=== PATIENT | female | born 1980 | race Caucasian/White ===

== ENCOUNTER → 2020-10-20 15:59 | Outpatient (BNVA) | payer OTHER, SELFPAY | PROVIDERS: PCP Nurse Practitioner Family; Visit Provider Registered Nurse | DX: R05 Cough (principal); J01.40 Acute pansinusitis, unspecified | CPT/HCPCS: 87635 ==

== ENCOUNTER → 2020-12-03 14:22 | Outpatient (BNVA) | payer BC, SELFPAY | PROVIDERS: PCP Nurse Practitioner Family; Visit Provider Nurse Practitioner Women's Health | DX: N92.6 Irregular menstruation, unspecified (principal); K58.9 Irritable bowel syndrome, unspecified; F32.89 Other specified depressive episodes; F41.9 Anxiety disorder, unspecified; G47.00 Insomnia, unspecified | CPT/HCPCS: 81025 ==

== ENCOUNTER → 2021-01-21 13:42 | Outpatient (BNVA) | payer BC, SELFPAY | PROVIDERS: PCP Nurse Practitioner Family; Visit Provider Obstetrics & Gynecology | DX: O09.899 Supervision of other high risk pregnancies, unspecified trimester (principal) | CPT/HCPCS: 80307; 82950; 84315; 85027; 86592; 86762; 86803; 86850; 86900; 87086; 87340; 87491; 87591; 87624; 87806 ==

== ENCOUNTER → 2021-01-30 15:33 | Outpatient (BNVA) | payer BC, SELFPAY | PROVIDERS: PCP Nurse Practitioner Family; Visit Provider Nurse Practitioner Women's Health | DX: O99.019 Anemia complicating pregnancy, unspecified trimester (principal); O09.899 Supervision of other high risk pregnancies, unspecified trimester | CPT/HCPCS: 82105; 82607; 82728; 82746; 83550; 84315 ==

== ENCOUNTER 2021-02-13 16:52 | Emergency (ER) | payer BC, SELFPAY ==
[2021-02-13 17:02] VITALS: BP 133/60; PULSE 87; RESP 18; TEMP 36.6; O2SAT 98; BMI 25.2
--- NOTE | 2021-02-13 17:04 | W.ED.PREGNAN ---
HPI - General: Chief complaint: Urogenital-Female Stated complaint: PELVIC PAIN 18 WKS PREG Time Seen by Provider: 02/13/21 17:03 History of Present Illness: HPI Narrative: Ms Leong is a 40 year old 5 para 3013 currently approximately 18 weeks with EDC of 07/14/2021 dated by an 11 week ultrasound who presents to the emergency department due to pelvic cramping. Symptom onset was approximately 3 days ago without specific provoking factor. Since that time her discomfort, which is moderate in intensity, and cramping in quality, has gotten more persistent. Mild associated nausea and vomiting today. No changes in bowel movements. No urinary symptoms. No associated vaginal bleeding or discharge. Mild associated lightheadedness yesterday. Does have a history of anemia. Has tried resting without significant leaf. No other significant change in health, signs of systemic illness, exacerbating or relieving factors. Review of Systems General: Reports: 10 or more systems reviewed and unremarkable except in HPI and below PFSH ED PFSH: Medical History Anxiety and depression Since at least the age of [age]--has been evaluated by [facility] and had gene testing to identify appropriate treatment. Managed by psychiatrist-- Dr. Tatum with [facility] in [place] Irritable bowel syndrome (IBS) Diagnosed in fifteen--was on Linzess in the past. Now diet controlled and has more constipation symptoms than anything. No pertinent past medical history Denies diabetes, asthma, hypertension, seizures, DVT/PE PCP: Mirta Lamb Surgical History Status post surgery Two thousand seven---history of bartholins cyst drainage with with general anesthesia. Performed At [facility] in [address]. Family History Grandfather Hypertension maternal Mother Thyroid disease Hyperlipidemia Family/Other Breast cancer maternal aunt, diagnosed at age 42 Grandmother Colon cancer maternal, diagnosed at age 53 Hyperlipidemia paternal Denies family history of Ovarian cancer Diabetes Heart disease Uterine cancer Stroke Physical Exam Narrative: EXAM NARRATIVE: GENERAL/CONSTITUTIONAL - mildly-appearing. Eyes - PERRL, no conjunctival injection ENMT - Atraumatic external nose and ears. Moist mucous membranes NECK - supple. trachea midline CARDIOVASCULAR - regular rate and rhythm. RESPIRATORY -clear to auscultation bilaterally. ABDOMEN/GI - Nontender/Nondistended. No tenderness to percussion or evidence of peritonitis MSK - Extremities without obvious deformity or tenderness to palpation SKIN - Warm, Dry NEURO - alert and appropriately oriented. Moves all extremities equally. Course ED course: - Patient was seen and evaluated by me at bedside - Patient placed on cardiac monitors, IV access obtained - Initial evaluation notable for exam as above - Fluids ordered - Labs notable for no leukocytosis, mild microcytic anemia. Patient has known history of anemia. Metabolic panel with mild evidence of likely dehydration. Offered pelvic exam versus self swab for wet prep, patient comfortable with self swab. - POCUS performed with limited eval, positive movements, FHR 138 - Upon serial reexamination after treatment the patient was mildly improved - Based on patient history, evaluation, labs, and imaging as interpreted the most likely cause of the patient's condition is bacterial vaginosis with abdominal cramping, nausea, vomiting in . Patient denies vaginal bleeding and therefore RhoGam not indicated at this time especially in the context of alternative explanation for cramping. - Patient required sent home doses of Flagyl given that pharmacies are currently closed and closed for [place] tomorrow. - The results of ED evaluation were discussed with the patient including prescriptions and/or symptomatic cares (if applicable) including appropriate and responsible use, followup plan, and return precautions. The patient verbalized understanding and felt safe for discharge. - Patient discharged in satisfactory condition. Vital Signs: Vital signs: Vital Signs Temperature 97.8 F 02/13/21 17:02 Pulse Rate 81 02/13/21 20:07 Respiratory Rate 16 02/13/21 20:07 Blood Pressure 124/62 02/13/21 20:07 Pulse Oximetry 98 02/13/21 20:07 MDM - OB/Uterine Contractions Medical Records: Attestation: I reviewed the patient's medical records. Lab Data: Attestation: I reviewed the patient's lab results. Labs: Lab Results 02/13/21 02/13/21 02/13/21 18:11 18:11 18:18 WBC 8.8 10^3/uL 10^3/ uL (4.0-10.0) RBC 4.26 10^6/uL 10^6 /uL (4.1-5.3) Hgb 10.9 g/dL L g/dL (11.5-15.3) Hct 34.1 % L % (37.0-47.0) MCV 80.0 fl L fl (81-99) MCH 25.6 pg L pg (28.0-34.0) MCHC 32.0 g/dL g/dL (30.0-36.0) RDW 17.2 % H % (12.1-15.1) Plt Count 275 10^3/cmm 10^3 /cmm (130-400) MPV 10.2 fL fL (7.4-10.4) Neut % (Auto) 70.7 % % Lymph % (Auto) 22.3 % % [place] % (Auto) 4.9 % % Eos % (Auto) 1.6 % % Baso % (Auto) 0.2 % % Neut # (Auto) 6.18 10^3/uL 10^3 /uL (1.8-7.7) Lymph # (Auto) 2.0 10^3/uL 10^3/ uL (0.8-4.8) [place] # (Auto) 0.4 10^3/uL 10^3/ uL (0.2-0.9) Eos # (Auto) 0.1 10^3/uL 10^3/ uL (0.0-0.8) Baso # (Auto) 0.0 10^3/uL 10^3/ uL (0.0-0.1) Nucleated RBC % (a uto) 0 % % Nucleated RBCs # 0.0 /100WBC /100W BC Sodium 136 mmol/L mmol/L (136-145) Potassium 3.5 mmol/L mmol/L (3.5-5.1) Chloride 102 mmol/L mmol/L (98-107) Carbon Dioxide 20 mmol/L L mmol/ L (22-29) Anion Gap 17.5 (5-19) BUN 7 mg/dL mg/dL (6-20) Creatinine 0.4 mg/dL L mg/dL (0.5-0.9) GFR Calculation 175.9 mL/min H mL /min (90-130) Glucose 118 mg/dL H mg/dL (65-115) Calculated Osmolal ity 281 mOsm/kg L mOs m/kg (285-295) Calcium 8.6 mg/dL mg/dL (8.5-10.5) Total Bilirubin 0.2 mg/dL mg/dL (0.15-1.2) AST 12 U/L U/L (0-32) ALT 13 U/L U/L (0-33) Alkaline Phosphata se 56 IU/L IU/L (35-105) Total Protein 6.6 g/dL g/dL (6.6-8.7) Albumin 3.8 g/dL g/dL (3.5-5.2) Globulin 2.8 g/dL g/dL (1.3-4.6) Urine Color Yellow (Yellow) Urine Appearance Clear (CLEAR) Urine pH 7 (5-7) Ur Specific Gravit y 1.010 (1.005-1.030) Urine Protein Neg (Negative) Urine Glucose (UA) Norm (Normal) Urine Ketones 1+ H (Negative) Urine Blood Neg (Negative) Urine Nitrate Negative (Negative) Urine Bilirubin Neg (Negative) Urine Urobilinogen Norm mg/dL mg/dL (Negative) Ur Leukocyte Fabiana ase Negative (Negative) Discharge Plan Discharge Patient Disposition: Home Clinical Impression: Bacterial vaginosis, Abdominal cramping affecting , Nausea and vomiting during Condition: Stable Prescriptions: New pyridoxine (vitamin B6) 25 mg tablet 25 mg PO TID PRN (Reason: nausea and vomiting) Qty: 30 RF: 0 doxylamine succinate 25 mg tablet 12.5 mg PO Q6H PRN (Reason: nausea and vomiting) Qty: 30 RF: 0 No Action sertraline [Zoloft] 50 mg tablet 50 mg PO DAILY RF: 0 lorazepam 0.5 mg tablet 0.25 mg PO DAILY PRNRF: 0 fluticasone propionate 50 mcg/actuation spray,suspension 2 spray intranasal DAILY RF: 0 duloxetine 30 mg capsule,delayed release(DR/EC) 60 mg PO DAILY RF: 0 Discharge Orders: Discharge ED (Routine); Ordered 02/13/21 Ordered By: Teddy Jamil Referrals: Mirta Lamb, FLOUR BLENDER HELPER [Primary Care Provider] - Discharge Diet: Usual diet Discharge Activity: Resume usual activity Patient Instructions: Nausea and Vomiting in (ED), Bacterial Vaginosis (ED), Abdominal Pain in (ED) Activity Restrictions/Additional Instructions: Thank you for visiting the emergency department. You were seen and evaluated for pelvic cramping during . You were found to have bacterial vaginosis. You will be given a prescription for Flagyl. The total course is 7 days with medication taken twice daily, given the pharmacy closure you will be given a dose here and then 2 doses as well as the prescription. Please follow-up with your primary care provider and air antisubmarine officer. Return to the emergency department for worsening symptoms, vaginal bleeding, or anything else that you are concerned about and feel needs emergency department evaluation. Coding Level of Care Code ED Insulation Worker Interior Surface for González Sotelo
[2021-02-13 18:20] LABS: Basophils % 0.2 %; Eosinophils # 0.1 10^3/uL (0.0-0.8); Eosinophils % 1.6 %; Hematocrit 34.1 % (37.0-47.0); Hemoglobin 10.9 g/dL (11.5-15.3); Lymphocytes % 22.3 %; Mean Corpuscular Hemoglobin 25.6 pg (28.0-34.0); Mean Platelet Volume 10.2 fL (7.4-10.4); Monocytes # 0.4 10^3/uL (0.2-0.9); Monocytes % 4.9 %; Neutrophils # 6.18 10^3/uL (1.8-7.7); Neutrophils % 70.7 %; Nucleated Red Blood Cells % 0 %; Platelet Count 275 10^3/cmm (130-400); Red Blood Count 4.26 10^6/uL (4.1-5.3); Red Cell Distribution Width 17.2 % (12.1-15.1); White Blood Count 8.8 10^3/uL (4.0-10.0)
[2021-02-13 18:23] VITALS: BP 118/60
[2021-02-13 18:25] LABS: Add Urine Microscopic? NO; Charge for UA Resulting for Rev
[2021-02-13] MEDS: sodium chloride 0.9% 1,000 ML 999 ML IV (18:30)
[2021-02-13 18:34] LABS: Bilirubin Urine Neg (Negative); Blood Urine Neg (Negative); Glucose Urine UA Norm (Normal); Ketones Urine 1+ (Negative); Leukocyte Esterase Urine Negative (Negative); Nitrate Urine Negative (Negative); Protein Urine Neg (Negative); Urine Appearance Clear (CLEAR); Urine Color Yellow (Yellow); Urobilinogen Urine Norm (Negative); pH Urine 7 (5-7)
[2021-02-13 18:41] LABS: Alanine Aminotransferase 13 U/L (0-33); Albumin Level 3.8 g/dL (3.5-5.2); Alkaline Phosphatase 56 IU/L (35-105); Anion Gap 17.5 (5-19); Aspartate Amino Transferase 12 U/L (0-32); Blood Urea Nitrogen 7 mg/dL (6-20); Calcium 8.6 mg/dL (8.5-10.5); Carbon Dioxide 20 mmol/L (22-29); Chloride 102 mmol/L (98-107); Globulin 2.8 g/dL (1.3-4.6); Glomerular Filtration Rate 175.9 mL/min (90-130); Glucose 118 mg/dL (65-115); Osmolality Calculated 281 mOsm/kg (285-295); Potassium 3.5 mmol/L (3.5-5.1); Sodium 136 mmol/L (136-145); Total Bilirubin 0.2 mg/dL (0.15-1.2); Total Protein 6.6 g/dL (6.6-8.7)
[2021-02-13] MEDS: metroNIDAZOLE 500 MG Tablet PO ×2 (19:58→20:05)
[2021-02-13 20:07] VITALS: BP 124/62; PULSE 81; RESP 16; O2SAT 98
== END 2021-02-13 20:13 | disposition home or self-care (01) ==
PROVIDERS: Emergency Provider Emergency Medicine; PCP Nurse Practitioner Family
DX: O23.592 Infection of other part of genital tract in pregnancy, second trimester (principal); O26.892 Other specified pregnancy related conditions, second trimester; R11.2 Nausea with vomiting, unspecified; R10.9 Unspecified abdominal pain; Z3A.18 18 weeks gestation of pregnancy
CPT/HCPCS: 80053; 81003; 85025; 87210; 96360; 99284; J7030

== ENCOUNTER → 2021-02-25 16:14 | Outpatient (BNVA) | payer BC, SELFPAY | PROVIDERS: PCP Nurse Practitioner Family; Visit Provider Obstetrics & Gynecology | DX: O09.899 Supervision of other high risk pregnancies, unspecified trimester (principal); O99.019 Anemia complicating pregnancy, unspecified trimester | CPT/HCPCS: 84315; 85027 ==

== ENCOUNTER 2021-04-12 13:15 | Outpatient (CLI) | payer BC, SELFPAY ==
[2021-04-12 13:24] VITALS: RESP 16; TEMP 36.3
[2021-04-12 13:34] VITALS: BP 120/56; PULSE 90
[2021-04-12 13:35] VITALS: TEMP 36.3
[2021-04-12 13:39] VITALS: BMI 26.2
[2021-04-12 13:55] LABS: Add Urine Culture? No; Bacteria Urine 2+ /hpf; Bilirubin Urine Neg (Negative); Blood Urine Neg (Negative); Glucose Urine UA Norm (Normal); Ketones Urine Negative (Negative); Leukocyte Esterase Urine Negative (Negative); Nitrate Urine Negative (Negative); Protein Urine Neg (Negative); Specific Gravity, Urine 1.015 (1.005-1.030); Squamous Epithelial Cell Urine 15-25 /hpf (0-5); Urine Appearance Hazy (CLEAR); Urine Color Dark Yellow (Yellow); Urobilinogen Urine 1 mg/dL (Negative); pH Urine 7 (5-7)
[2021-04-12 14:17] VITALS: BP 125/59; PULSE 92
[2021-04-12 14:24] VITALS: BP 125/59; PULSE 92
== END 2021-04-12 14:24 | disposition home or self-care (01) ==
LOC: OPOB 13:18 → OBGYN 13:18
PROVIDERS: PCP Nurse Practitioner Family; Visit Provider Obstetrics & Gynecology
DX: O26.899 Other specified pregnancy related conditions, unspecified trimester (principal); Z3A.00 Weeks of gestation of pregnancy not specified; R52 Pain, unspecified
CPT/HCPCS: 81001; 87086; 99211

== ENCOUNTER → 2021-04-20 08:42 | Outpatient (BNVA) | payer BC, SELFPAY | PROVIDERS: PCP Nurse Practitioner Family; Visit Provider Obstetrics & Gynecology | DX: O09.899 Supervision of other high risk pregnancies, unspecified trimester (principal); O26.899 Other specified pregnancy related conditions, unspecified trimester; Z67.91 Unspecified blood type, Rh negative | CPT/HCPCS: 82950; 84315; 85027; 86850 ==

== ENCOUNTER → 2021-05-15 13:58 | Day surgery (SDC) | payer BC, SELFPAY ==
[2021-05-15] MEDS: ferric carboxy (IVPB) 750 MG in sodium chloride 0.9% (100 ml) 100 ML 345 MG IV (14:18)
[2021-05-15 14:20] VITALS: BP 115/80; PULSE 104; RESP 18; TEMP 36.5; O2SAT 100
== END ==
LOC: GILAB 13:58
PROVIDERS: PCP Nurse Practitioner Family; Visit Provider Internal Medicine
DX: K90.9 Intestinal malabsorption, unspecified (principal)
CPT/HCPCS: 96365; J1439

== ENCOUNTER → 2021-05-22 13:45 | Day surgery (SDC) | payer BC, MEDICAID, SELFPAY ==
[2021-05-22] MEDS: ferric carboxy (IVPB) 750 MG in sodium chloride 0.9% (100 ml) 100 ML 345 MG IV (13:56)
[2021-05-22 13:59] VITALS: BP 115/73; PULSE 93; RESP 18; TEMP 36.9; O2SAT 96
== END ==
PROVIDERS: PCP Nurse Practitioner Family; Visit Provider Internal Medicine
DX: K90.9 Intestinal malabsorption, unspecified (principal)
CPT/HCPCS: 96365; J1439

== ENCOUNTER → 2021-06-02 16:11 | Outpatient (BNVA) | payer BC, SELFPAY | PROVIDERS: PCP Nurse Practitioner Family; Visit Provider Nurse Practitioner Women's Health | DX: O09.899 Supervision of other high risk pregnancies, unspecified trimester (principal); O99.019 Anemia complicating pregnancy, unspecified trimester; D64.9 Anemia, unspecified; Z3A.00 Weeks of gestation of pregnancy not specified | CPT/HCPCS: 84315; 85027 ==

== ENCOUNTER → 2021-06-16 14:58 | Outpatient (BNVA) | payer BC, SELFPAY | PROVIDERS: PCP Nurse Practitioner Family; Visit Provider Obstetrics & Gynecology | DX: O09.899 Supervision of other high risk pregnancies, unspecified trimester (principal); O99.019 Anemia complicating pregnancy, unspecified trimester; O26.899 Other specified pregnancy related conditions, unspecified trimester; Z67.91 Unspecified blood type, Rh negative; F41.9 Anxiety disorder, unspecified; O09.522 Supervision of elderly multigravida, second trimester; F32.A Depression, unspecified | CPT/HCPCS: 84315; 87081 ==

== ENCOUNTER 2021-07-02 12:04 | Outpatient (CLI) | payer BC, SELFPAY ==
[2021-07-02] VITALS (8 sets, daily range): BP systolic 110–119; BP diastolic 56–74; PULSE 79–105; RESP 18; TEMP 36.9; BMI 28.0
== END 2021-07-02 14:30 | disposition home or self-care (01) ==
LOC: OPOB 12:05 → OBGYN 12:05
PROVIDERS: PCP Nurse Practitioner Family; Visit Provider Obstetrics & Gynecology
DX: O09.529 Supervision of elderly multigravida, unspecified trimester (principal); Z3A.00 Weeks of gestation of pregnancy not specified
CPT/HCPCS: 59025; 99211

== ENCOUNTER 2021-07-07 06:36 | Inpatient (IN) | payer BC, MEDICAID, SELFPAY ==
[2021-07-07] VITALS (37 sets, daily range): BP systolic 96–131; BP diastolic 50–74; PULSE 65–100; RESP 16–18; TEMP 36.3–37; O2SAT 97–98; BMI 27.8
[2021-07-07 07:15] LABS: Basophils % 0.5 %; Eosinophils # 0.1 10^3/uL (0.0-0.8); Eosinophils % 1.5 %; Hematocrit 36.7 % (37.0-47.0); Hemoglobin 12.2 g/dL (11.5-15.3); Lymphocytes # 1.9 10^3/uL (0.8-4.8); Lymphocytes % 23.6 %; Mean Corpuscular HGB Conc 33.2 g/dL (30.0-36.0); Mean Corpuscular Hemoglobin 28.6 pg (28.0-34.0); Mean Corpuscular Volume 85.9 fl (81-99); Mean Platelet Volume 10.8 fL (7.4-10.4); Monocytes # 0.4 10^3/uL (0.2-0.9); Monocytes % 5.2 %; Neutrophils # 5.57 10^3/uL (1.8-7.7); Neutrophils % 68.7 %; Nucleated Red Blood Cells % 0 %; Platelet Count 210 10^3/cmm (130-400); Red Blood Count 4.27 10^6/uL (4.1-5.3); Red Cell Distribution Width 19.5 % (12.1-15.1); White Blood Count 8.1 10^3/uL (4.0-10.0)
[2021-07-07] MEDS: dextrose 5%-lactated ringers 1,000 ML 999 ML IV (07:38)
[2021-07-07] MEDS: oxytocin 30 UNIT/500 ML BAG IV (08:02)
[2021-07-07] MEDS: dextrose 5%-lactated ringers 1,000 ML 125 ML IV (12:31)
[2021-07-07] MEDS: fentaNYL 50 mcg/mL INJ 2mL 25 MCG IVP (12:57)
[2021-07-07] MEDS: lidocaine 2% INJ 20 mL INJECTION (13:50)
[2021-07-07] MEDS: miSOPROStol 200 mcg Tablet 800 MCG PR (13:51)
--- NOTE | 2021-07-07 14:33 | P.HPUD_ITS ---
Labor & Delivery H&P Update Date of Procedure: July 07, 2021 Date H&P Performed: 07/01/21 H&P update information: I have reviewed H&P completed within last 30 days, I have examined patient prior to procedure, Changes to prior documentation as noted here and H&P is in [facility] [place] EMR on date indicated Changes to previous documentation: Patient is in labor and cervix is 7 cm Admission Diagnosis:
--- NOTE | 2021-07-07 14:34 | P.PCNOB_ITS ---
Delivery Note: Date of delivery: July 07, 2021 - PRE-DELIVERY DIAGNOSIS: 40-year-old 5 para 3-0-1-3 at 39 weeks and 0 days gestation Advanced maternal age Induction of labor for advanced maternal age Anxiety and depression on medication including Xanax Anemia status post IV iron Rh--RhoGAM candidate POST-DELIVERY DIAGNOSIS: Vaginal delivery on 07/07/2021 Placental abruption-mild Meconium stained amniotic fluid PROCEDURE: Vaginal delivery on 07/07/2021 ANESTHESIA: Local anesthesia with 2% lidocaine DELIVERING PHYSICIAN: Keisha Harvey FACOG PRE-DELIVERY COURSE: Ms. Leong is a 40-year-old 5 para 3-0-1-3 at 39 weeks and 0 days who presented to labor and delivery for elective induction of labor as recommended by maternal- medicine for advanced maternal age. When she presented to labor and delivery her cervix was noted to be 4 cm, 80% and -2 station, cephalic and tracing was category 1 with no contractions. She was started on Pitocin titrated to a maximum of 20 mIU at 8 PM. With this she started to have regular contractions every 2 to 3 minutes and started to grow more uncomforta ble. At 11:30 AM the nurse was called to the room and patient felt some discharge as she thought her water had broke. She was noted to have a small trickle of blood. tracing was category 1 and Pitocin was cut down to 10 international units given possibility of abruption. At this time she was noted to be 6 to 7 cm and was uncomfortable. She did receive fentanyl for pain control. She progressed rapidly after this and had more heavy bleeding at which time Pitocin was turned off. She was 9 cm at 1:20 PM at which time artificial rupture of membranes was performed with light meconium fluid. She was fully dilated at 1:26 PM and +1 station ready to push. tracing during this time was category 2 with occasional variable decelerations when patient was bearing down. Prior to AROM tracing was category 1. DELIVERY NOTE: She was set up in lithotomy position and was pushing effectively. She was noted to be +3 station and continued pushing well. The head delivered in occiput posterior position, no nuchal cord was present. The shoulders and rest of the body followed with her next push. The baby's mouth and nose were suctioned and the baby was handed to the waiting chief jailer given abruption and meconium amniotic fluid. The placenta delivered spontaneously intact with membranes and was sent to pathology because of the abruption. The fundus was noted to be firm and well contracted however the lower uterine segment was a little boggy and 800 mcg of Cytotec was placed to aid in contraction and with this and continued uterine massage tone improved. The vagina and cervix were inspected and no cervical or sulcal lacerations were noted. The perineum was intact other than a first-degree vaginal laceration which was repaired in the usual fashion after infiltrating the area with 2% lidocaine. Good hemostasis and reapproximation was obtained Baby girl, Ozzie born at 1:41 PM on 07[birth year]21 with 6/9, weighing 6 pounds 15 ounces, 3145 g, 19 inches long. Placenta was delivered spontaneously at 1:44 PM Cotyledons were intact , inserted umbilical cord with 3 vessels noted. It did show signs of abruption and was sent to pathology. Estimated blood loss 400 mL. Patient likely lost another 300 mL during her labor course from abruption for a total blood loss of 700 mL. Complications-none, both baby and mother were left to recover in a stable condition. This documentation was created by Deezer dial screw assembler software (known for inherent dial screw assembler error). Every effort was made to assure accuracy of t ranscription. Any obvious errors or omissions should be clarified with the author of the document. History History History 5 Term 4 Miscarriages/Ectopic 1 0 Living Children 4 Other History: 5, Para 4014 (also has one adopted [id number]) x 4, SAB x 1 1------> 05/31/2001, female, (Aleta), 7 lbs, 6oz. Vaginal delivery. 38 weeks. No complications. Delivered by Dr. Do at [facility] in [place], [place]. 2-------> 2002---SAB, first trimester, no D & C required. Gravdia 3------> 08/15/2003, female, (Dee), 7 lbs, 6 oz. Vaginal delivery. 38 weeks. No complications. Delivered by Dr. Do at [facility] 4------> 11/28/2005, female, (Diana), 7 lbs 6 oz. Vaginal delivery. 38 weeks. Induced. No complications. Delivered by Dr. Do at [facility] in [place], [place]. 5------> 07/07/2021-female(Ozzie), 6 pounds 13 ounces, induction at 39 weeks and 0 days for AMA-6-hour induction, vaginal delivery with first-degree perineal tear. [place] [facility] [place] Delivery was complicated with mild abruption that did not affect tracing and light meconium. Coding Level of Care Code Acute Hoof And Shoe Inspector for Chg Deepak
[2021-07-07] MEDS: ibuprofen 800 mg tablet PO ×2 (15:39→20:30)
[2021-07-07] MEDS: benzocaine-menthol 78 gm Canister 1 SPRAY TOPICAL (15:40)
--- NOTE | 2021-07-07 16:13 | PC.NURSE ---
pt up to bathroom without difficulty. roland care by pt. pad and gown changed. pt back to bed, instructed to call for assistance with next trip to bathroom and then will be up ad july. pt c/o increased cramping, fundus firm. Dr Harvey called and orders for one time dose of [place] received.
[2021-07-07] MEDS: HYDROcodone-acetaminophen 5-325 mg Tablet 2 TAB PO (16:22)
[2021-07-07] MEDS: docusate sodium 100 mg Capsule PO (16:22)
--- NOTE | 2021-07-07 18:11 | PC.NURSE ---
ambulated to OB-8. Oriented to room/call light, and proud parent pack. I&O sheet discussed. Fresh ice water given.
[2021-07-08 02:28] LABS: Hematocrit 32.2 % (37.0-47.0); Hemoglobin 10.6 g/dL (11.5-15.3); Mean Corpuscular HGB Conc 32.9 g/dL (30.0-36.0); Mean Corpuscular Hemoglobin 28.6 pg (28.0-34.0); Platelet Count 169 10^3/cmm (130-400); Red Cell Distribution Width 19.1 % (12.1-15.1); White Blood Count 12.1 10^3/uL (4.0-10.0)
[2021-07-08 04:01] VITALS: BP 119/62; PULSE 88; RESP 16; TEMP 36.9; O2SAT 97
[2021-07-08] MEDS: docusate sodium 100 mg Capsule PO (08:15)
[2021-07-08] MEDS: prenatal vitamin Capsule 1 CAP PO (08:15)
[2021-07-08] MEDS: ibuprofen 800 mg tablet PO ×2 (08:15→15:11)
[2021-07-08] MEDS: duloxetine 30 mg Capsule 60 MG PO (08:17)
[2021-07-08 10:46] VITALS: BP 119/64; PULSE 80; RESP 16; TEMP 37.1; O2SAT 98
--- NOTE | 2021-07-08 12:07 | PM.OBGYDC ---
Discharge Providers RADIOLOGY ASST Date of Admission: 07/07/21 06:36 Date of Discharge: 07/08/21 Attending Provider at Admission: Keisha Navarro MD Attending Provider at Discharge: Keisha Navarro MD Primary RADIOLOGY ASST: PRE-DELIVERY DIAGNOSIS: 40-year-old 5 para 3-0-1-3 at 39 weeks and 0 days gestation Advanced maternal age Induction of labor for advanced maternal age Anxiety and depression on medication including Xanax Anemia status post IV iron Rh--RhoGAM candidate POST-DELIVERY DIAGNOSIS: Vaginal delivery on 07/07/2021 Placental abruption-mild Meconium stained amniotic fluid PROCEDURE: Vaginal delivery on 07/07/2021 ANESTHESIA: Local anesthesia with 2% lidocaine DELIVERING PHYSICIAN: Keisha Harvey FACOG PRE-DELIVERY COURSE: Ms. Leong is a 40-year-old 5 para 3-0-1-3 at 39 weeks and 0 days who presented to labor and delivery for elective induction of labor as recommended by maternal- medicine for advanced maternal age.? When she presented to labor and delivery her cervix was noted to be 4 cm, 80% and -2 station, cephalic and tracing was category 1 with no contractions.? She was started on Pitocin titrated to a maximum of 20 mIU at 8 PM.? With this she started to have regular contractions every 2 to 3 minutes and started to grow more uncomfortable.? At 11:30 AM the nurse was called to the room and patient felt some discharge as she thought her water had broke.? She was noted to have a small trickle of blood.? tracing was category 1 and Pitocin was cut down to 10 international units given possibility of abruption.? At this time she was noted to be 6 to 7 cm and was uncomfortable.? She did receive fentanyl for pain control.? She progressed rapidly after this and had more heavy bleeding at which time Pitocin was turned off.? She was 9 cm at 1:20 PM at which time artificial rupture of membranes was performed with light meconium fluid.? She was fully dilated at 1:26 PM and +1 station ready to push.? tracing during this time was category 2 with occasional variable decelerations when patient was bearing down.? Prior to AROM tracing was category 1. DELIVERY? NOTE: She was set up in lithotomy position and was pushing effectively. She was noted to be? +3 station and continued pushing well. The head delivered in occiput posterior position, no nuchal cord was present. The shoulders and rest of the body followed with her next push. The baby's mouth and nose were suctioned and the baby was handed to the waiting anesthesiology medical doctor given abruption and meconium amniotic fluid. The placenta delivered spontaneously intact with membranes and was sent to pathology because of the abruption. The fundus was noted to be firm and well contracted however the lower uterine segment was a little boggy and 800 mcg of Cytotec was placed to aid in contraction and with this and continued uterine massage tone improved. The vagina and cervix were inspected and no cervical or sulcal lacerations were noted.? The perineum was intact other than a first-degree vaginal laceration which was repaired in the usual fashion after infiltrating the area with 2% lidocaine.? Good hemostasis and reapproximation was obtained Baby girl, Ozzie born at 1:41 PM on 07/07/2021 with 6/9, weighing 6 pounds 15 ounces, 3145 g, 19 inches long. Placenta was delivered spontaneously at 1:44 PM Cotyledons were intact ,? inserted umbilical cord with 3 vessels noted.? It did show signs of abruption and was sent to pathology. Estimated blood loss 400 mL.??Patient likely lost another 300 mL during her labor course from abruption for a total blood loss of 700 mL. Complications-none, both baby and mother were left to recover in a stable condition. HOSPITAL COURSE: She underwent an uncomplicated vaginal delivery on 07/07/2021. She did well on day 0 and was ambulating well, tolerating regular diet, voiding freely, passing flatus. She was formula feeding and pumping without difficulty and bonding well with her daughter. Pain was well-controlled with by mouth pain medication. She denied nausea, vomiting, fever, chills, shortness of breath, leg pain. She had moderate vaginal bleeding. On day # 1 she continued to do well with stable vital signs and stable hemoglobin at 10.6. She was discharged to room in with baby day 1 in a stable condition, as she desired early discharge. Baby was going to be staying for 5 days to watch for withdrawal given her Xanax use. Warning signs for endometritis, mastitis, DVT/PE were reviewed with her. Post delivery activity restrictions were also reviewed with her at all her questions were answered to her satisfaction.She plans on using the patch for contraception which will be started at her 6-week visit. She did receive RhoGAM on 07/08/2021 EXAM AT DISCHARGE: Gen.: No acute distress Heart: S1-S2 heard, regular rate and rhythm Lungs: Clear to auscultation bilaterally Abdomen: Soft, fundus firm below umbilicus, Legs: No calf tenderness, no pedal edema. CONDITION AT DISCHARGE: Stable This documentation was created by Givit electrician supervisor software (known for inherent electrician supervisor error). Every effort was made to assure accuracy of electrician supervisor. Any obvious errors or omissions should be clarified with the author of the document. Primary Care Provider: KAMALA Nielsen Reason for Visit Reason for Visit: IOL History History History 5 Term 4 Miscarriages/Ectopic 1 0 Living Children 4 Other History: 5, Para 4014 (also has one adopted [id number]) x 4, SAB x 1 1------> 05/31/2001, female, (Aleta), 7 lbs, 6oz. Vaginal delivery. 38 weeks. No complications. Delivered by Dr. Do at [facility] in [place], [place]. 2-------> 2002---SAB, first trimester, no D & C required. Gravdia 3------> 08/15/2003, female, (Dee), 7 lbs, 6 oz. Vaginal delivery. 38 weeks. No complications. Delivered by Dr. Do at [facility] 4------> 11/28/2005, female, (Diana), 7 lbs 6 oz. Vaginal delivery. 38 weeks. Induced. No complications. Delivered by Dr. Do at [facility] in [place], [place]. 5------> 07/07/2021-female(Ozzie), 6 pounds 13 ounces, induction at 39 weeks and 0 days for AMA-6-hour induction, vaginal delivery with first-degree perineal tear. Delivered by Dr. Harvey at [facility] [place]. Delivery was complicated with mild abruption that did not affect tracing and light meconium. Discharge Data Studies Completed and Pending Pending at discharge Category Date Time Status Cytology [PTH] Routine Pth 07/07/21 14:56 Received Laboratory Results WBC 12.1 10^3/uL (4.0-10.0) H 07/08/21 02:15 RBC 3.70 10^6/uL (4.1-5.3) L 07/08/21 02:15 Hgb 10.6 g/dL (11.5-15.3) L 07/08/21 02:15 Hct 32.2 % (37.0-47.0) L 07/08/21 02:15 MCV 87.0 fl (81-99) 07/08/21 02:15 MCH 28.6 pg (28.0-34.0) 07/08/21 02:15 MCHC 32.9 g/dL (30.0-36.0) 07/08/21 02:15 RDW 19.1 % (12.1-15.1) H 07/08/21 02:15 Plt Count 169 10^3/cmm (130-400) 07/08/21 02:15 MPV 11.0 fL (7.4-10.4) H 07/08/21 02:15 Neut % (Auto) 68.7 % 07/07/21 06:57 Lymph % (Auto) 23.6 % 07/07/21 06:57 [place] % (Auto) 5.2 % 07/07/21 06:57 Eos % (Auto) 1.5 % 07/07/21 06:57 Baso % (Auto) 0.5 % 07/07/21 06:57 Neut # (Auto) 5.57 10^3/uL (1.8-7.7) 07/07/21 06:57 Lymph # (Auto) 1.9 10^3/uL (0.8-4.8) 07/07/21 06:57 [place] # (Auto) 0.4 10^3/uL (0.2-0.9) 07/07/21 06:57 Eos # (Auto) 0.1 10^3/uL (0.0-0.8) 07/07/21 06:57 Baso # (Auto) 0.0 10^3/uL (0.0-0.1) 07/07/21 06:57 Nucleated RBC % (auto) 0 % 07/07/21 06:57 Nucleated RBCs # 0.0 /100WBC 07/07/21 06:57 Blood Type O Negative 07/07/21 06:57 Rho(D) Type Negative 07/07/21 06:57 Antibody Screen Negative 07/07/21 06:57 Screen Negative (Negative) 07/08/21 02:15 Vitals Last Vital Signs Temp 98.8 F 07/08/21 10:46 Pulse 80 07/08/21 10:46 Resp 16 07/08/21 10:46 BP 119/64 07/08/21 10:46 Pulse Ox 98 07/08/21 10:46 Discharge Plan Discharge Patient Disposition: Home Condition: Stable Prescriptions: New docusate sodium 100 mg Capsule 100 mg PO BID PRN (Reason: constipation) Qty: 30 0RF ibuprofen 800 mg tablet 800 mg PO Q8H Qty: 30 0RF Continued (DME) breast pump [Pump In Style Advanced] Device See Rx Instructions .MEDSUPPLY Qty: 1 0RF Rx Instructions: As directed sertraline [Zoloft] 50 mg tablet 50 mg PO DAILY 0RF lorazepam 0.5 mg tablet 0.25 mg PO DAILY PRN (Reason: Anxiety) 0RF Label Comments: Weaning off of this fluticasone propionate 50 mcg/actuation spray,suspension 2 spray intranasal DAILY 0RF Rx Instructions: administer into each nostril duloxetine 30 mg capsule,delayed release(DR/EC) 60 mg PO DAILY 0RF prenat.vits,deyanira,[id number] Tablet 1 tab PO DAILY 0RF Discontinued ferrous sulfate 325 mg (65 mg iron) tablet 325 mg PO DAILY 0RF Discharge Orders: Discharge Order (Routine); Ordered 07/08/21 Ordered By: Keisha Navarro Referrals: Keisha Navarro MD [Physician] - Discharge Diet: Regular Patient Instructions: Opioid Safety Activity Restrictions/Additional Instructions: Pelvic rest for 6 weeks, no heavy lifting for 6 weeks Follow-up for visit at 6-week Discharge Attestations RADIOLOGY ASST Time Spent in Discharge Care*: greater than 30 min Coding Level of Care Code Acute Head Of English for Chg Deepak
[2021-07-08] MEDS: sertraline 50 mg Tablet PO (12:53)
[2021-07-08 16:46] VITALS: BP 118/85; PULSE 69; RESP 16; TEMP 36.9; O2SAT 99
== END 2021-07-08 16:45 | disposition home or self-care (01) | DRG 806 ==
LOC: OPOB 07-08 07:21 → OBGYN 07-08 07:21
PROVIDERS: Admitting Provider Obstetrics & Gynecology; PCP Nurse Practitioner Family; Visit Provider Obstetrics & Gynecology
DX: O45.93 Premature separation of placenta, unspecified, third trimester (principal); O36.0930 Maternal care for other rhesus isoimmunization, third trimester, not applicable or unspecified; Z37.0 Single live birth; O99.344 Other mental disorders complicating childbirth; O99.02 Anemia complicating childbirth; O77.0 Labor and delivery complicated by meconium in amniotic fluid; Z3A.39 39 weeks gestation of pregnancy; F41.8 Other specified anxiety disorders; O75.89 Other specified complications of labor and delivery; K58.9 Irritable bowel syndrome, unspecified
CPT/HCPCS: 36415; 85025; 85027; 85460; 86850; 86900; 88307; 90384; J3010

== ENCOUNTER → 2021-09-22 11:51 | Outpatient (BNVA) | payer MEDICAID, SELFPAY | PROVIDERS: PCP Nurse Practitioner Family; Visit Provider Obstetrics & Gynecology | DX: D64.9 Anemia, unspecified (principal) | CPT/HCPCS: 85027 ==

== ENCOUNTER → 2022-03-09 15:00 | Outpatient (BNVA) | payer MEDICAID, SELFPAY | PROVIDERS: PCP Nurse Practitioner Family; Visit Provider Nurse Practitioner | DX: J32.9 Chronic sinusitis, unspecified (principal); Z20.822 Contact with and (suspected) exposure to COVID-19 | CPT/HCPCS: 87400; 87426 ==

== ENCOUNTER → 2023-06-10 09:41 | Outpatient (BNVA) | payer MEDICAID, SELFPAY | PROVIDERS: PCP Nurse Practitioner Family; Visit Provider Nurse Practitioner Family | DX: R00.0 Tachycardia, unspecified (principal); I10 Essential (primary) hypertension; Z13.6 Encounter for screening for cardiovascular disorders; Z79.899 Other long term (current) drug therapy; F41.9 Anxiety disorder, unspecified; F32.A Depression, unspecified | CPT/HCPCS: 80053; 80061; 81003; 83036; 84439; 84443; 85025; 93005 ==

== ENCOUNTER → 2023-06-21 16:38 | Outpatient (BNVA) | payer MEDICAID, SELFPAY | PROVIDERS: PCP Nurse Practitioner Family; Visit Provider Nurse Practitioner Family | DX: D50.9 Iron deficiency anemia, unspecified (principal); N81.6 Rectocele; R00.0 Tachycardia, unspecified; I10 Essential (primary) hypertension | CPT/HCPCS: 82728; 83550 ==

== ENCOUNTER → 2024-06-07 16:36 | Outpatient (BNVA) | payer MEDICAID, SELFPAY | PROVIDERS: PCP Nurse Practitioner Family; Visit Provider Nurse Practitioner Family | DX: I10 Essential (primary) hypertension (principal); K90.9 Intestinal malabsorption, unspecified; D50.9 Iron deficiency anemia, unspecified; Z79.899 Other long term (current) drug therapy; R00.0 Tachycardia, unspecified; E55.9 Vitamin D deficiency, unspecified | CPT/HCPCS: 80053; 80061; 81003; 82306; 82728; 83036; 83550; 84443; 85025 ==

== ENCOUNTER 2024-07-17 14:00 | Oncology outpatient (recurring) (ONCR) | payer MEDICAID, SELFPAY ==
[2024-07-03] MEDS: iron sucrose 200 MG in sodium chloride 0.9% (100 ml) 100 ML IV (12:58)
[2024-07-03 13:41] VITALS: BP 126/73; PULSE 63; RESP 16; TEMP 36.8; O2SAT 95
[2024-07-05] MEDS: iron sucrose 200 MG in sodium chloride 0.9% (100 ml) 100 ML 220 MG IV (15:45)
[2024-07-05 16:25] VITALS: BP 124/78; PULSE 74; RESP 18; TEMP 36.6; O2SAT 98
[2024-07-11] MEDS: iron sucrose 200 MG in sodium chloride 0.9% (100 ml) 100 ML 220 MG IV (15:54)
[2024-07-17] MEDS: iron sucrose 200 MG in sodium chloride 0.9% (100 ml) 100 ML 220 MG IV (14:48)
[2024-07-17 15:15] VITALS: BP 124/78; PULSE 74; RESP 17; TEMP 36.4; O2SAT 98
== END 2024-07-21 23:59 | disposition home or self-care (01) ==
PROVIDERS: PCP Nurse Practitioner Family; Visit Provider Nurse Practitioner Family
DX: Z53.9 Procedure and treatment not carried out, unspecified reason (principal); D50.9 Iron deficiency anemia, unspecified; Z79.899 Other long term (current) drug therapy
CPT/HCPCS: 96365; J1756

== ENCOUNTER → 2024-09-20 14:42 | Outpatient (BNVA) | payer MEDICAID, SELFPAY | PROVIDERS: Family Provider Nurse Practitioner Family; PCP Nurse Practitioner Family; Visit Provider Nurse Practitioner Family | DX: I10 Essential (primary) hypertension (principal); D50.9 Iron deficiency anemia, unspecified; Z79.899 Other long term (current) drug therapy; R22.0 Localized swelling, mass and lump, head | CPT/HCPCS: 80053; 80061; 81003; 82306; 82570; 82728; 83036; 83550; 84156; 84439; 84443; 85025; 85651; 86140; 86376 ==